=== PATIENT | female | born 1960 | race Hispanic/Latino ===

== ENCOUNTER → 2018-07-20 | Day surgery (SDC) | payer OTHER ==
[~2018-07-20] MED LIST: ATORVASTATIN CA10 MG PO; EPHEDRINE SULFATE INJ 50 MG/10 ML SYR ONE; FENTANYL CITRATE/PF 100MCG/2 ML INJ ONE; GLUCAGON FOR INJ 1 MG VIAL ONE; HYOSCYAMINE SULFATE 0.5 MG/ML INJ ONE; LEVOTHYROXINE112 MCG PO; LIDOCAINE HCL 2% LOCAL INJ 5 ML SDV VIAL INJ ONE; LISINOPRIL10 MG PO; MIDAZOLAM HCL 2 MG/2 ML VIAL ONE; ONDANSETRON HCL INJ 2MG/ML 2ML 2 MG/ML VIAL ONE; PHENYLEPHRINE HCL 1% 10 MG/ML VIAL ONE; PROPOFOL IV EMULSION 10 MG/ML 50 ML VIAL ONE
--- OUTSIDE RECORDS SUMMARY | 2018-07-20 07:41 | XMS REPORT ---
[facility] Address Unknown Phone Unavailable Care Team Providers Care Pipe Layer Name Role Phone UNKNOWN, REFFERING PP Unavailable ALISE HERNÁNDEZ Unavailable Unavailable Mars PASCUAL Unavailable Unavailable Problems This patient has no known problems. Allergies, Adverse Reactions, Alerts This patient has no known allergies or adverse reactions. Medications This patient has no known medications. Results Test Description Test Time Test Comments Text Results Atomic Results Result Comments TISSUE EXAM 2017-06-14 15:35:00 Surgical Pathology Report Case: [id number] Authorizing Provider: Minerva Hernández Collected: 06/13/2017 1056 MD Alise Ordering Location: [facility] ENDOSCOPY Received: 06/13/2017 1427 SERVICES Pathologist: Kika Bowers MD Specimens: A) - Polyp, Colon - Transverse, TRANSVERSE COLON POLYPS X5 - CBX B) - Polyp, Colon - Right/Ascending, ASCENDING COLON POLYP - CBX A. TRANSVERSE COLON POLYPS X5, BIOPSY: - TUBULAR ADENOMA x 4B. RIGHT ASCENDING COLON POLYP, BIOPSY: - TUBULAR ADENOMA Signing Pathologist Direct Phone Line: [phone] signed by Kika Bowers MD on 06/14/2017 at 3:35 PMThe attached endoscopy report reviewed. Microscopy performed./[id number] for colon cancer.A. Polyp, colon- transverse - transverse colon polyp x 5B. Polyp, colon-right/ascending - ascending colon polyp Specimen is received in two parts. Part A is received in formalin labeled with the patient's information as well as "transverse colon polyp". It contains multiple pieces of johnson-red to johnson-pink irregular and polypoid tissue ranging in size from 0.1 x 0.1 x 0.1 cm to 0.2 x 0.2 x 0.1 cm. The specimen measures in its entirety 0.6 x 0.5 x 0.1 cm. The entire specimen is submitted following infiltration into a single cassette.Part b is received in formalin labeled with the patient's information as well as "ascending colon polyp". It contains a single johnson-red to johnson-pink polypoid tissue measuring 0.1 x 0.1 x 0.1 cm. The entire specimen submitted following infiltration into a single cassette.RC/bcPerformed Basic Metabolic Panel 2016-12-13 13:54:00 Sodium (test code=NA) 138 mmol/L 135-145 Potassium (test code=K) 4.8 mmol/L 3.5-5.1 Chloride (test code=CL) 101 mmol/L 98-105 Carbon Dioxide (test code=CO2) 25 mmol/L 22-29 Glucose (test code=GLU) 93 mg/dL 70-115 Blood Urea Nitrogen (test code=BUN) 15 mg/dL 6-20 Creatinine (test code=CREAT) 0.7 mg/dL 0.5-0.9 Calcium (test code=CA) 9.7 mg/dL 8.3-10.5 BUN/Creatinine Ratio (test code=BCRATIO) 21.4 Anion Gap (test code=AGAP) 12 mmol/L 7-16 Estimated GFR (test code=GFR) >60 mL/min/1.73m2 eGFR (estimated Glomerular Filtration Rate) is an estimated value,calculated from the patient's serum creatinine using the MDRD equation.It is NOT the patient's actual GFR. The eGFR provides a more clinicallyuseful measure of kidney disease than serum creatinine alone.This calculation takes sex and race into account, if the informationis provided. If the race is not provided, and the patient isAfrican-Citizen Of [place], multiply by 1.212. If sex is not provided, and thepatient is female, multiply by 0.742. Results for patients <18 years ofage have not been validated by the MDRD study and should be interpretedwith caution.eGFR Result Interpretation:eGFR > or=60 is in the Normal RangeeGFR < 60 may mean kidney diseaseeGFR < 15 may mean kidney failureRanges recommended by the National Kidney Foundat ion,http://nkdep.nih.gov CBC with [id number] 13:43:00* Test Item Value Reference Range Comments WBC (test code=WBC) 6.8 K/cumm 4.4-10.5 RBC (test code=RBC) 3.98 M/cumm 3.75-5.20 Hemoglobin (test code=HGB) 13.0 gm/dL 12.2-14.8 Hematocrit (test code=HCT) 38.0 % 36.5-44.4 MCV (test code=MCV) 95.6 fL 80-100 MCH (test code=MCH) 32.6 pg 27.0-32.5 MCHC (test code=MCHC) 34.2 g/dL 32.0-37.5 RDW (test code=RDW) 12.4 % 11.5-14.5 Platelet Count (test code=PLTCT) 241 K/cumm 140-440 MPV (test code=MPV) 8.5 fL Diff Method (test code=DIFFM) Auto Neutrophil (test code=NEUT) 47.1 % 36-70 Lymphocyte (test code=LYMPH) 44.5 % 12-44 Monocyte (test code=MONO) 3.8 % 0-11 Eosinophil (test code=EOS) 4.3 % 0-7 Basophil (test code=BASO) 0.3 % 0-2 Neutro Abs (test code=ANEUT) 3.2 K/cumm 1.6-7.4 Lymph Abs (test code=ALYMPH) 3.0 K/cumm 0.5-4.6 [place] Abs (test code=AMONO) 0.3 K/cumm 0.0-1.2 Eos Abs (test code=AEOS) 0.29 K/cumm 0.00-0.74 Baso Abs (test code=ABASO) 0.0 K/cumm 0.00-0.21
--- OUTSIDE RECORDS SUMMARY | 2018-07-20 07:41 | XMS REPORT | Clinical Summary ---
Author Author [facility] Address Unknown Phone Unavailable Care Team Providers Care Household Appliances Service Technician Name Role Phone Sharpless PCP Allergies No Known Allergies Medications End Date Status Medication Sig Dispensed Refills Start Date Active lisinopril Take 20 mg by 0 (PRINIVIL,ZESTRIL) 20 MG mouth daily. tablet Active levothyroxine (SYNTHROID, Take 150 mcg 0 LEVOTHROID) 137 MCG by mouth tablet daily . Active atorvastatin (LIPITOR) 20 Take 20 mg by 0 MG tablet mouth daily. Active Problems Not on file Social History Date Tobacco Use Types Packs/Day Years Used Never Smoker Smokeless Tobacco: Never Used Alcohol Use Drinks/Week oz/Week Comments Yes socially Sex Assigned at Date Recorded Not on file Industry Job Start Date Occupation Not on file Not on file Not on file Travel End Travel History Travel Start No recent travel history available. Last Filed Vital Signs Not on file Plan of Treatment Not on file Results Not on fileafter 07/19/2017 Insurance Payer Benefit Subscriber ID Type Phone Address Plan / Group [employer] xxxxxxxxxxx [employer]
[2018-07-20 11:47] VITALS: BP 107/50
--- NOTE | 2018-07-20 15:39 | Operative Report ---
DATE OF PROCEDURE: 07/20/2018 SURGEON: Luis E Peterson MD PROCEDURE: Colonoscopy and polypectomy. INDICATIONS FOR COLONOSCOPY: Surveillance colonoscopy, personal history of colon polyps. MEDICATIONS: The patient was done under MAC, please see anesthesiologist's note. PROCEDURE IN DETAIL: With the patient in left lateral decubitus position, the flexible fiberoptic Olympus colonoscope was inserted into the rectum with ease and advanced all the way to the cecum. It was then withdrawn slowly, mucosa overlying the cecum appeared to be within normal limits. One polyp was removed per cold snare polypectomy from the ascending colon. The rest of the ascending, transverse and descending grossly appeared to be within normal limits. Three polyps were removed per cold biopsy forceps from the sigmoid colon. Anastomosis was noted at 6 cm from the anal verge that was intact. The scope was then retroflexed into the distal rectum and the area around the dentate line appeared to be within normal limits. The scope was then straightened out, it was subsequently withdrawn. The patient tolerated the procedure well. IMPRESSION: 1. Ascending colon polyp, snared. 2. Sigmoid colon polyps x3, removed per cold biopsy forceps. 3. Anastomosis at 6 cm from the anal verge, intact. PLAN: Follow up histology. Initiate high-fiber, low-fat diet. Initiate high-fiber supplement. A total of four polyps were removed. The patient might benefit from a followup colonoscopy in 3 to 5 years. Luis E Peterson MD [facility] [place] /[id number] cc: Dr. Jane King
== END | disposition home or self-care (01) ==
LOC: OR 07:35
PROVIDERS: ATTEND Internal Medicine Gastroenterology
DX: Z12.11 Encounter for screening for malignant neoplasm of colon (principal); D12.2 Benign neoplasm of ascending colon; D12.5 Benign neoplasm of sigmoid colon; Z98.0 Intestinal bypass and anastomosis status; K57.92 Diverticulitis of intestine, part unspecified, without perforation or abscess without bleeding; N20.0 Calculus of kidney; I10 Essential (primary) hypertension; E03.9 Hypothyroidism, unspecified; Z01.810 Encounter for preprocedural cardiovascular examination; Z68.28 Body mass index [BMI] 28.0-28.9, adult; Z90.49 Acquired absence of other specified parts of digestive tract
CPT/HCPCS: 45380; 45385; 93005; J1610; J1980; J2001; J2250; J2370; J2405; J2704; 45378